=== PATIENT | female | born 1985 | race African-American/Black ===

== ENCOUNTER 2018-01-15 15:53 | Emergency (ER) | payer OTHER ==
[~2018-01-15] VITALS: Ht 165.1 cm; Wt 84.8 kg
[~2018-01-15 15:53] MED LIST: ORTHO EVRA PAT1 EACH TD; PROMETHAZINE-C120 ML PO; ZPAK PO
[2018-01-15] MEDS ORDERED: LISINOPRIL-HCT1 EAC2 PO (16:13)
[2018-01-15] MEDS ORDERED: MONONESSA1 EACH (16:13)
[2018-01-15] MEDS ORDERED: SINGULAIR 10 MG10 M1 PO (16:13)
[2018-01-15 16:26] LABS: URINE BILIRUBIN NEGATIVE (Negative); URINE BLOOD NEGATIVE (Negative); URINE CLARITY CLEAR; URINE COLOR YELLOW; URINE GLUCOSE-RANDOM* NEGATIVE (Negative); URINE KETONES NEGATIVE (Negative); URINE LEUKOCYTES-REFLEX NEGATIVE (Negative); URINE NITRITE-REFLEX NEGATIVE (Negative); URINE PROTEIN (DIPSTICK) 1+ (Negative); URINE UROBILINOGEN 0.2 E.U./dl (0.2-1.0)
[2018-01-15 16:35] LABS: CASTS None Seen /LPF (None Seen); CRYSTALS None Seen /LPF (None Seen); MUCUS 0-3 Light strn/LPF (None Seen); SQUAMOUS 0-3 Few /LPF (0-3); URINE RBC None Seen /HPF (0-2); URINE WBC-REFLEX 0-5 Rare /HPF (0-5)
[2018-01-15 16:36] LABS: BACTERIA-REFLEX 1-9 Few /HPF (None Seen)
[2018-01-15 17:36] LABS: ABSOLUTE NEUTROPHILS 7.4 thou/uL (1.4-8.2); EOSINOPHILS 0.6 % (0.0-3.0); HEMATOCRIT 42.5 % (37.0-47.0); LYMPHOCYTES 26.6 % (24.0-44.0); MCH 29.1 pg (26.0-34.0); MCV 88.3 fL (80.0-100.0); MONOCYTES 5.3 % (1.0-8.0); PLATELET COUNT 311 thou/uL (150-400); POLYS 66.5 % (36.0-66.0); RBC 4.81 mil/uL (4.20-5.00); RDW 13.4 % (10.5-14.5); WBC 11.1 thou/uL (4.0-11.0)
[2018-01-15 17:41] LABS: CALCIUM 9.5 mg/dL (8.5-10.1); CREATININE 0.8 mg/dL (0.6-1.0); POTASSIUM 3.5 mmol/L (3.5-5.1)
[2018-01-15 17:46] LABS: ALBUMIN 4.4 g/dL (3.4-5.0); TOTAL BILIRUBIN 0.4 mg/dL (<0.1-1.0); TOTAL PROTEIN 8.3 g/dL (6.4-8.2)
[2018-01-15] MEDS ORDERED: ONDANSETRON HCL4 M2 PO (18:44)
[2018-01-15 18:59] VITALS: BP 145/70
== END 2018-01-15 19:00 | disposition home or self-care (01) ==
LOC: ER 15:53
PROVIDERS: Emergency Medicine; Nurse Practitioner
DX: R11.2 Nausea with vomiting, unspecified (principal); R10.13 Epigastric pain; I10 Essential (primary) hypertension; F10.99 Alcohol use, unspecified with unspecified alcohol-induced disorder; Z88.8 Allergy status to other drugs, medicaments and biological substances